=== PATIENT | female | born 2000 ===

== ENCOUNTER 2020-11-06 12:24 | Inpatient (IN) | payer OTHER ==
[~2020-11-06 12:24] MED LIST: Bupivacaine 0.25% HCL 30 ML VIAL ONE
[2020-11-06] MEDS: Lactated Ringer's 1,000 ML IV SCH ×2 (13:14→23:25)
[2020-11-06] MEDS ORDERED: Carboprost 250 MCG/ML AMP IM PRN (13:34)
[2020-11-06] MEDS ORDERED: Diphenoxylate HCl/Atropine Tablet PO PRN ×2 (13:34)
[2020-11-06] MEDS ORDERED: Methylergonovine 0.2 MG/ML VIAL IM PRN (13:34)
[2020-11-06] MEDS ORDERED: NS / Oxytocin 40 units/1000ml 1,000 ML IV PRN (13:34)
[2020-11-06] MEDS ORDERED: Misoprostol 200 MCG TAB PR PRN (13:34)
[2020-11-06] MEDS ORDERED: Butorphanol Tartrate 1 MG/ML VIAL SLOW IVP PRN (13:34)
[2020-11-06] MEDS ORDERED: Lidocaine 1% (PF) 30 ML VIAL SC PRN (13:34)
[2020-11-06] MEDS ORDERED: hydrALAZINE 20 MG/ML VIAL SLOW IVP PRN (13:34)
[2020-11-06] MEDS ORDERED: Ibuprofen 800 MG TAB PO PRN (13:34)
[2020-11-06] MEDS ORDERED: Promethazine HCl 25 MG/ML VIAL IM PRN ×2 (13:34→23:44)
[2020-11-06] MEDS ORDERED: Acetaminophen 500 MG TAB PO PRN (13:34)
[2020-11-06] MEDS ORDERED: Ondansetron PF 4 MG/2 ML Vial IVP PRN ×2 (13:34→23:44)
[2020-11-06] MEDS ORDERED: HYDROcodone/Acetaminophen 5/325 mg Tablet PO PRN ×2 (13:34)
[2020-11-06 13:40] VITALS: BMI 24.9
[2020-11-06] MEDS ORDERED: Penicillin G Potassium 5 MILL.UNITS in Sodium Chloride 0.9% 100 ML IVPB SCH (13:45)
[2020-11-06 14:35] LABS: Hemoglobin 12.1 g/dL (12.0-16.0); Mean Corpuscular HGB CONC 34.5 g/dL (32.0-36.0); Mean Corpuscular Volume 89.9 fL (78.0-98.0); Mean Platelet Volume 10.5 fL (7.4-10.4); Platelet Count 187 thou/uL (130-400); RBC Distribution Width 12.2 % (11.5-14.5); Red Blood Cell (RBC) Count 3.91 mill/uL (4.20-5.40); White Blood Cell (WBC) Count 13.3 thou/uL (4.8-10.8)
[2020-11-06] MEDS: Misoprostol 100 MCG TAB VAG SCH ×3 (14:39→22:18)
[2020-11-06 15:14] LABS: HBSAg Index 0.23 S/CO (0-0.99); Hep B Surf Ag Non-Reactive S/CO (NonReactive)
[2020-11-06 15:17] LABS: Syphilis Antibody Nonreactive (Nonreactive); Syphilis Antibody Index 0.03 S/CO (<1.00 Non-Reactive)
[2020-11-06] MEDS: Penicillin G 2.5 MILL.units 2.5 MILL.UNITS in Premix Bag 1 BAG IVPB SCH ×2 (19:06→23:17)
[2020-11-06] MEDS ORDERED: Fentanyl 4 mcg/Bup 0.1% Cadd 100 ML in Premix Bag 1 BAG EPIDURAL SCH (22:15)
[2020-11-06] MEDS ORDERED: Butorphanol Tartrate 1 MG/ML VIAL ONE (22:55)
[2020-11-06] MEDS ORDERED: ePHEDrine 50 MG/ML VIAL SLOW IVP PRN (23:44)
[2020-11-06] MEDS ORDERED: Acetaminophen 325 MG TAB PO PRN (23:44)
[2020-11-06] MEDS ORDERED: diphenhydrAMINE 50 MG/ML VIAL IVP PRN (23:44)
[2020-11-06] MEDS ORDERED: Lactated Ringer's 500 ML IV PRN (23:44)
[2020-11-06] MEDS ORDERED: Naloxone HCl 0.4 mg/ml Vial IVP PRN ×2 (23:44)
[2020-11-06] MEDS ORDERED: Fentanyl 4 mcg/Bupivacaine 0.1% Cassette 100 ML EPIDURAL SCH (23:45)
[2020-11-06] MEDS ORDERED: Communication Order-Pharmacy FS SCH (23:45)
[2020-11-07] MEDS: Misoprostol 100 MCG TAB VAG SCH ×2 (01:02→04:40)
[2020-11-07 02:28] LABS: SARS-CoV-2 MS2 Positive; SARS-CoV-2 N Gene Negative; SARS-CoV-2 S Gene Negative; SARS-CoV-2 by NAA Not Detected (NotDetected); SARS-CoV-2 orf1ab Negative
[2020-11-07] MEDS: Penicillin G 2.5 MILL.units 2.5 MILL.UNITS in Premix Bag 1 BAG IVPB SCH (03:00)
[2020-11-07] MEDS ORDERED: Preparation H Ointment 28 GM TUBE PR PRN (04:07)
[2020-11-07] MEDS ORDERED: Bisacodyl 10 MG SUPP PR PRN (04:07)
[2020-11-07] MEDS ORDERED: Milk Of Magnesia 30 ML UDCUP PO PRN (04:07)
[2020-11-07] MEDS ORDERED: Lanolin Ointment 7 GM TUBE TOP PRN (04:07)
[2020-11-07] MEDS ORDERED: hydrALAZINE 20 MG/ML VIAL SLOW IVP PRN (04:07)
[2020-11-07] MEDS ORDERED: traMADol HCl 50 MG TAB PO PRN (04:07)
[2020-11-07] MEDS ORDERED: Benzocaine-Menthol 82.5 ML CAN TOP PRN (04:07)
--- NOTE | 2020-11-07 04:10 | PDOC.OPDEL ---
OB Operative/Delivery Note Delivery Dr/Surgeon: Keith Pre-Delivery Diagnosis: medically indicated induction Procedure/Post Delivery Dx: spontaneous vaginal delivery Weeks gestation: 39 Anesthesia: epidural - Findings A - 1 min: 7 - 5 min: 9 - Additional Findings/Plan Placenta delivered: spontaneous Repaired Obstetrical Laceration: left labial Estimated blood loss: 92 ml qbl Post delivery plan: routine recovery
[2020-11-07] MEDS ORDERED: NS / Oxytocin 40 units/1000ml 1,000 ML IV SCH (04:15)
[2020-11-07] MEDS: Prenatal Vitamin 1 TAB PO SCH (08:42)
[2020-11-07] MEDS: Ibuprofen 800 MG TAB PO SCH ×3 (08:42→22:23)
[2020-11-07] MEDS: Docusate Calcium (SURFAK) 240 MG CAP PO SCH ×2 (08:43→22:22)
[2020-11-07] MEDS ORDERED: Adacel (T-DAP) 0.5 ML SYRINGE IM ONE (09:00)
[2020-11-07] MEDS: Ferrous Sulfate 325 MG TAB PO SCH ×2 (11:13→16:52)
[2020-11-08] MEDS: Ibuprofen 800 MG TAB PO SCH (04:45)
[2020-11-08] MEDS: Ferrous Sulfate 325 MG TAB PO SCH (09:02)
--- NOTE | 2020-11-08 10:05 | PDOC.PP ---
Post Progress Note Post Day #: 1 Subjective: doing well, nursing and minimal lochia, desires DC home today PO intake tolerated: yes Flatus: yes Ambulation: yes Vital Signs (12 hours) Temp Pulse Resp BP Pulse Ox 11/08/20 08:16 98.0 F 77 20 116/65 100 11/08/20 08:05 100 11/08/20 01:30 98.4 F 76 16 125/61 Weight Weight 164 lb - Physical Examination General: NAD Respiratory: non-labored breathing Abdominal: no distention Neurological: no gross focal deficits Psychiatric: A&Ox3, normal affect Result Diagrams: 11/06/20 13:08 Additional Labs: Post Labs Hep Bs Antigen Non-Reactive S/CO (NonReactive) 11/06/20 13:08 Blood Type O POSITIVE 11/06/20 14:43 (1) Vaginal delivery Code(s): O80 - ENCOUNTER FOR FULL-TERM UNCOMPLICATED DELIVERY Status: Acute - Assessment/Plan PPD1 doing well after 0400 delivery yesterday. Plan for DC today.
[2020-11-08] MEDS: Docusate Calcium (SURFAK) 240 MG CAP PO SCH (10:15)
[2020-11-08] MEDS: Prenatal Vitamin 1 TAB PO SCH (10:15)
[2020-11-08 11:58] VITALS: BP 127/82; TEMP 98.1
== END 2020-11-08 12:50 | disposition home or self-care (01) | DRG 806 ==
LOC: L&D 12:24 → 3SW 11-07 06:18
PROVIDERS: ADMIT Obstetrics & Gynecology; ATTEND Obstetrics & Gynecology
PROC: 10E0XZZ Delivery of Products of Conception, External Approach (ICD-10-PCS; principal; 2020-11-07)
PROC: 0KQM0ZZ Repair Perineum Muscle, Open Approach (ICD-10-PCS; 2020-11-07)
DX: O36.8130 Decreased fetal movements, third trimester, not applicable or unspecified (principal); O41.03X0 Oligohydramnios, third trimester, not applicable or unspecified; Z37.0 Single live birth; Z3A.39 39 weeks gestation of pregnancy; Z20.828 Contact with and (suspected) exposure to other viral communicable diseases; O70.0 First degree perineal laceration during delivery
CPT/HCPCS: 51702; 85027; 86780; 86850; 86900; 86901; 87340; 87635; J0595; J2405; J2540; J3490; S0020; U0003